=== PATIENT | male | born 1960 | race Caucasian/White ===

== ENCOUNTER 2025-05-05 15:50 | Emergency (ER) | payer SELFPAY | END 2025-05-05 16:31 | disposition home or self-care (01) | LOC: BURERS 15:50 | DX: Z13.89 Encounter for screening for other disorder (principal); D45 Polycythemia vera; I48.91 Unspecified atrial fibrillation; Z79.02 Long term (current) use of antithrombotics/antiplatelets | CPT/HCPCS: 99283 ==